=== PATIENT | female | born 1930 | race Caucasian/White ===

== ENCOUNTER → 2016-08-10 | Day surgery (SDC) | payer OTHER ==
[~2016-08-10] VITALS: Ht 152.4 cm; Wt 62.5 kg
[2016-08-10] VITALS (7 sets, daily range): BP systolic 86–140; BP diastolic 46–93; PULSE 49–101; TEMP 36.3; O2SAT 95–99; Ht 152.4 cm; Wt 62.5 kg
[~2016-08-10] MED LIST: ASPI-435 PO; CINN1CAP2 PO; COUMADIN; CRD200 PO; DXY100 PO; ESCI10TA17 PO; FSMD/70 PO; LATA0.5S OP; MAGN400T6 PO; METO25TA3 PO; PROPOFOL IV EMULSION 10 MG/ML 20 ML VIAL IV ONE; SPIR25TA PO; TORS1TAB41 PO
--- NOTE | 2016-08-10 07:34 | History & Physical Bridge Note ---
H&P Re-Evaluation Bridge Note: I have examined the patient, reviewed the History & Physical and in the interval since the performance of the History & Physical I have noted the following changes of clinical significance: No changes noted
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
--- NOTE | 2016-08-10 08:28 | Anesthesiology Progress Note ---
Anesthesia Post Op Note Date & Time Aug 10, 2016 at 08:28 Vital Signs Pain Intensity: 0 Vital Signs Past 12 Hours Date Time Temp Pulse Resp B/P Pulse Ox O2 Delivery O2 Flow Rate FiO2 08/10/16 08:15 51 16 132/75 100 Room Air 08/10/16 08:01 51 16 126/75 94 Room Air 08/10/16 07:51 52 16 114/68 97 Nasal Cannula 2 08/10/16 07:41 51 16 108/65 97 Nasal Cannula 2 08/10/16 07:40 51 14 86/46 98 Nasal Cannula 2 08/10/16 07:35 49 12 92/54 96 Nasal Cannula 4 08/10/16 07:31 50 10 95 Nasal Cannula 4 08/10/16 07:30 53 10 107/60 95 Nasal Cannula 4 08/10/16 07:29 89 16 140/93 97 Nasal Cannula 4 08/10/16 07:12 36.3 101 16 119/84 99 Room Air Notes Mental Status: alert / awake / arousable, participated in evaluation Pt Amnestic to Procedure: Yes Nausea / Vomiting: adequately controlled Pain: adequately controlled Airway Patency, RR, SpO2: stable & adequate BP & HR: stable & adequate Hydration State: stable & adequate Anesthetic Complications: no major complications apparent
--- NOTE | 2016-08-10 09:11 | Discharge Instructions ---
Discharge Instructions Procedure Procedure Date: Aug 10, 2016. Reason for Visit: A-Fib *Dr. Bustos To Do* W/ Anesthesia. Discharge Discharge Date: Aug 10, 2016. Discharge Diagnosis: Successful synchronized electrical cardioversion Last Recorded Wt (Kilograms): 62.5 Anesthesia Post Anesthesia Instructions: If you have had General Anesthesia or IV Sedation: * Do not drive today. * Resume driving when surgeon permits. * Do not make important decisions or sign legal documents today. * Call surgeon for: 1. Temperature elevations greater than 101 degrees F. 2. Uncontrollable pain. 3. Excessive bleeding. 4. Persistent nausea and vomiting. 5. Medication intolerance (nausea, vomiting or rash). * For nausea and vomiting use only clear liquids such as: tea, soda, bouillon until nausea subsides, then gradually increase diet as tolerated. * If you have any concerns or questions, call your surgeon's office. If physician is unavailable and it is an emergency, call 911 or go to the nearest emergency room. Instructions Activity Recommendations: limitations as noted below Return to School/Work: with no limitations Recommended Home Diet: resume previous diet Allergies: Coded Allergies: Penicillin G (Verified Allergy, Unknown, HIVES, 07/05/15) Sulfa Antibiotics (Verified Allergy, Unknown, HIVES, 07/05/15) Provider Instructions ACTIVITY RECOMMENDATIONS: Resume activities as tolerated with no limitations unless specified. __ No lifting over __ pounds for 24 hours. __ Do not engage in vigorous exercise, sexual activity, or sports for 24 hours. __ Do not drive or operate any motorized equipment for 24 hours. SPECIAL CARE: Report any return of rapid heart rhythm promptly Follow Up Follow-up with: Gabo Tarango as scheduled Wilbur Tucker Recommendations: Call your doctor if: * Temperature above 101 degrees * Pain not relieved by pain medicine ordered * There is increased drainage or redness from any incision * You have any unanswered questions or concerns. Your Doctors Instructions noted above were prepared by provider Axel Bustos. Patient Signature Section: Patient Instructions Signature Page Xin Armijo Patient (or Guardian) Signature/Date: I have read and understand the instructions given to me by my caregivers. Caregiver/RN/Doctor Signature/Date: The above-named patient and/or guardian has received patient instructions on this date. + Original Patient Signature Page (only) stays with chart. Please make copy for patient.
--- NOTE | 2016-08-10 09:50 | CARDIOVERSION ---
DATE OF OPERATION: 08/10/2016 DATE OF PROCEDURE: 08/10/2016. REFERRAL INDICATIONS: Atrial fibrillation with rapid ventricular response symptomatic. PRIMARY CARE PHYSICIAN: Dr. Hood. PRIMARY MANAGER MSW: Dr. March. PROCEDURE: After the procedure and risks were explained in detail to the patient informed consent was obtained. Anesthesia was consulted and the patient sedated with continuous heart rate, blood pressure and oxygen saturation monitoring as well as end tidal CO2 monitoring. Synchronized electrical cardioversion was then performed using single 150 joule biphasic shock with successful conversion to sinus bradycardia. The patient aroused post procedure having tolerated well. EKG revealed sinus bradycardia with low atrial focus, poor progression across the anterior precordial leads, no acute ST segment changes. QT corrected was 470. RECOMMENDATIONS: Will continue medical therapy with adjustments made, specifically amiodarone was reduced to 200 mg once per day, metoprolol succinate was reduced to 25 mg once per day. PLAN: Follow up next week with Gabo Tarango as already scheduled. I attest to the content of the Intraoperative Record and any orders documented therein. Any exceptions are noted below. MTDD
== END | disposition home or self-care (01) ==
LOC: C.CATH 06:09
PROVIDERS: ATTEND Internal Medicine Cardiovascular Disease
DX: I48.91 Unspecified atrial fibrillation (principal); I10 Essential (primary) hypertension

== ENCOUNTER 2018-12-25 11:11 | Observation (INO) ==
[~2018-12-25 11:11] MED LIST changes: -ASPI-435 PO; -CINN1CAP2 PO; +CLINDAMYCIN 600 MG/54 ML BAG IV SCH; -COUMADIN; -CRD200 PO; -DXY100 PO; -ESCI10TA17 PO; -FSMD/70 PO; -LATA0.5S OP; +LR 15ML/HR IV SCH; -MAGN400T6 PO; -METO25TA3 PO; -PROPOFOL IV EMULSION 10 MG/ML 20 ML VIAL IV ONE; -SPIR25TA PO; -TORS1TAB41 PO; +VANCOMYCIN HCL 1,000 MG in SODIUM CHLORIDE 0.9% 250 ML IV SCH
--- NOTE | 2018-12-25 11:27 | Pre Anesthesia Assessment ---
Date of Service December 25, 2018 Pre Sedation Assessment Cardiovascular RRR, no murmur, no edema Respiratory normal respiratory effort, lungs clear to auscultation Pre-Sedation Airway Assessment Smoking Status: Never smoker Hx Sleep Apnea: No Hx Difficult Intubation: No Short, Thick Neck: No Thyromental Distance: < 3.5 Finger Breadths Oral Cavity: + Dental Abnormalities Mallampati Class: II ASA: ASA3 NPO Status Date of Last Intake of Fluids: 12/24/18 Date of Last Intake of Solid Food: 12/24/18 Procedure Planning Contraindications for Sedation: none Current Medications Reviewed: Yes Notes The planned sedation has been discussed with the patient. Informed Consent was obtained. I have identified the patient, determined the appropriateness of sedation and have assessed the patient immediately prior to the procedure. All medicine(s) and interventions are by my order.
--- NOTE | 2018-12-25 11:28 | History & Physical Bridge Note ---
Date of Service December 25, 2018 History & Physical Bridge Note I have examined the patient, reviewed the History & Physical and in the interval since the performance of the History & Physical I have noted the following changes of clinical significance: echo revealed moderate to severe MS but I spoke with the patient's primary transport rn will continue with ppm and probably metoprolol afterwards. Rediscussed the procedure and consents obtained.
[2018-12-25 12:38] LABS: INR 2.3 (0.9-1.1); Prothrombin Time 22.1 Seconds (9.0-12.0)
[2018-12-25 12:46] LABS: BUN Creatinine Ratio 16.2 (10-20); Calcium 9.3 mg/dl (8.5-10.1); Creatinine Clr Calc Pharmacy 25.3 ml/min; Est GFR (African American) 48.5; Est GFR (Non-African American) 41.9; Potassium 3.8 mmol/L (3.5-5.1)
[2018-12-25] MEDS ORDERED: BUPIVACAINE 0.25% 30 ML VIAL ONE (14:39)
[2018-12-25] MEDS ORDERED: LIDOCAINE HCL 1% 20 ML VIAL ONE (14:39)
[2018-12-25] MEDS ORDERED: BACITRACIN INJ 50,000 UNIT VIAL ONE (14:39)
[2018-12-25] MEDS ORDERED: fentaNYL citrate 100 MCG/2 ML VIAL ONE (14:54)
[2018-12-25] MEDS ORDERED: MIDAZOLAM HCL 5 MG/ML 1 ML VIAL ONE (14:54)
[2018-12-25] MEDS ORDERED: OXYCODONE/ACETAMINOPHEN 5mg/325mg TAB PO PRN (16:37)
--- NOTE | 2018-12-25 16:43 | Discharge Summary ---
Date of Service December 26, 2018 Admission HPI Per Admitting Provider pt admitted for elective ppm due to tbs Admission Exam Per Admitting Provider aaox3, NAD NC/AT, EOMI Supple No JVD Nrl S1/S2, + systolic murmur CTA b/l no w/r/r soft nt/nd no LE edema b/l skin intact no focal deficits Principal Diagnosis TBS s/p dual chamber ppm Discharge Exam aaox3, NAD NC/AT, EOMI Supple No JVD Nrl S1/S2, +systolic murmur CTA b/l no w/r/r soft nt/nd no LE edema b/l skin intact no focal deficits left pectoral incision intact, no hematoma mild ecchymosis Discharge Data Allergies Allergy/AdvReac Type Severity Reaction Status Date / Time nitrofurantoin Allergy Unknown DELIRIUM Verified 12/25/18 11:50 penicillin G Allergy Unknown HIVES Verified 12/25/18 11:50 Sulfa (Sulfonamide Allergy Unknown HIVES Verified 12/25/18 11:50 Antibiotics) ramipril AdvReac Mild SHORTNESS Verified 12/25/18 11:50 OF BREATH Procedures Performed Operation Date: 12/25/18 13:00 Actual Procedures p Pacer with A/V Leads (Dual) - Cira Coffey DO Ordered Studies CXR: No PTX, leads in position ECG: AP-VS PPM POD 1 Interogation: Normal function; stable lead testing 12/25/18 07:15 EP Lab Images for PACS ONCE Hospital Course (1) Tachy-gerardo syndrome: Total Time Total Time Spent Total Time Spent (In Minutes): 30 Total Time Includes: Examination of the Patient, Discharge Planning, Medication Reconciliation and Other Discharge Plan Discharge Items Patient Disposition: Home - Self-Care Reason For Visit: Tachy/Gerardo Syndrome Discharge Diagnosis: TBS s/p dual chamber ppm Condition: Good Discharge Goals: Improve function Activity: As commented below Activity Comment: do not lift the left elbow over the left shoulder for 1 month Lifting: No more than 10 pounds Lifting Comment: do not lift more than 10 pounds with the left arm for 2 weeks Bathing: Keep incision dry Bathing Comment: can shower wednesday 12/27 let water run over the incision do not scrub it Non-emergency contact: Repeat Photocomposing Machine Operator Call non-emergency contact if: you have any medication questions Follow-Up/Referrals: Heather Wagner DO [Primary Care Provider] - Diet: Resume previous diet Addtl Provider Instructions: device and wound check as scheduled in [facility] next week if you notice any swelling or any concerns at the incision site call my office immediately Prescriptions: New metoprolol succinate 25 mg Tablet Extended Release 24 Hr 50 mg PO DAILY Qty: 30 RF: 0 Continued aspirin 81 mg Tablet,Delayed Release (Dr/Ec) 81 mg PO DAILY Qty: 0 RF: 0 magnesium oxide 400 mg magnesium Capsule 400 mg PO DAILY Qty: 0 RF: 0 warfarin [Coumadin] 2 mg Tablet 2 mg PO DIRECTED Qty: 0 RF: 0 latanoprost [Xalatan] 0.005 % Drops 1 drp OPHTHALMIC (EYE) PM Qty: 7.5 RF: 3 torsemide 20 mg Tablet 20 mg PO Q2D Qty: 0 RF: 0 methimazole [Tapazole] 10 mg Tablet 20 mg PO DAILY RF: 0 torsemide 10 mg Tablet 10 mg PO Q2D RF: 0 Discontinued metoprolol succinate 25 mg Tablet Extended Release 24 Hr 12.5 mg PO DAILY RF: 0 Stand-Alone Forms: [facility] Admission Data Attending Provider: Cira Coffey Primary Care Provider: Heather Wagner
[2018-12-25] MEDS: ACETAMINOPHEN 325 MG TAB PO PRN (17:45)
[2018-12-25] MEDS ORDERED: WARFARIN SOD 1 MG TAB PO SCH (19:00)
[2018-12-25] MEDS ORDERED: LATANOPROST 0.005% OP SOLN 2.5 ML BTL OP SCH (21:00)
[2018-12-26] MEDS: ACETAMINOPHEN 325 MG TAB PO PRN (02:34)
--- NOTE | 2018-12-26 06:30 | XRay Report ---
XR chest 2V routine HISTORY: 87 years-old Female post implant status post placement of a left subclavian pacer COMPARISON: Chest radiograph 07/07/2015 TECHNIQUE: PA and lateral views of the chest FINDINGS: Cardiac silhouette is enlarged, unchanged. Dense mitral annular and thoracic aortic calcifications ar e noted. Status post placement of a left subclavian pacer, leads overlying the expected locations of the right atrium and right ventricle. No postprocedural pneumothorax identified. There is no pleural effusion, focal airspace consolidation or overt pulmonary edema. Cholecystectomy. Degenerative change s of the shoulders and spine. IMPRESSION: Status post placement of a left subclavian pacer. No postprocedural pneumothorax. The above report was generated using voice recognition software. It may contain grammatical, syntax o r spelling errors. Electronically signed by: Yovani Flores M.D. 12/26/2018 6:28 AM
[2018-12-26] MEDS ORDERED: METOPROLOL SUCC 50MG EXT REL TAB PO SCH (09:00)
[2018-12-26] MEDS ORDERED: TORSEMIDE 20 MG TAB PO SCH (09:00)
[2018-12-26] MEDS ORDERED: methIMAzole 5 MG TABLET PO SCH (09:00)
[2018-12-26] MEDS ORDERED: ASPIRIN 81 MG ECTAB PO SCH (09:00)
[2018-12-26] MEDS ORDERED: MAGNESIUM OXIDE 400 MG TAB PO SCH (09:00)
[2018-12-26] MEDS ORDERED: WARFARIN SOD 2 MG TAB PO SCH (16:00)
[2018-12-27] MEDS ORDERED: TORSEMIDE 10 MG TAB PO SCH (09:00)
--- NOTE | 2018-12-27 23:40 | Operative Report ---
DATE OF OPERATION: 12/25/2018 DATE OF PROCEDURE: 12/25/2018 PREOPERATIVE DIAGNOSIS: Tachybrady syndrome. POSTOPERATIVE DIAGNOSIS: Tachybrady syndrome. PROCEDURE: Dual chamber rate responsive permanent pacemaker under fluoroscopic guidance. SURGEON: Cira Coffey DO SUPERVISOR GRINDING: None. ANESTHESIA: Monitored conscious sedation administered under my supervision by Vijaya Jorgensen. Start time 1507 and end time 1626. Total of 3 mg of Versed and 75 mcg fentanyl. INTRAVENOUS FLUIDS: 100 mL. ANTIBIOTICS: 600 mg of clindamycin. BLOOD LOSS: 20 mL. URINE OUTPUT: Not applicable. SPECIMENS: None. FINDINGS: See below. DRAINS: None. INDICATIONS: This is an 87-year-old female with past medical history for hyperthyroidism, recently diagnosed, probably secondary to amiodarone, paroxysmal atrial fibrillation diagnosed back in 2015, she has had a history of 2 cardioversions. She was started on amiodarone in August of 2016 and she is on Coumadin. Her CHADS2-VASc score is 5. Hypertension, moderate mitral stenosis, severe tricuspid regurgitation, mild mitral regurgitation, hyperlipidemia, chronic kidney disease stage III, chronic diastolic heart failure, [place] Heart Association class 2. She has evidence of tachybrady syndrome, was recommended dual chamber pacemaker. CONSENT: Consent was obtained prior to the patient going into electrophysiology lab. The patient was informed of the risks, benefits and alternative procedure. Risks include but not limited to sudden cardiac , cardiac arrhythmias, cerebrovascular accident, myocardial infarction, injury to the blood vessels, chamber of the heart, lung, bleeding, and infection. The patient understood these risks and agreed to the procedure as planned. Informed consent was obtained. DESCRIPTION OF THE PROCEDURE: The patient was brought into the electrophysiology lab in a fasting state. She was connected to continuous threat monitoring analyst. A timeout was performed to ensure patient identity and procedure correctly. The patient received prophylactic antibiotics prior to incision. She was prepped and draped over the left infraclavicular space in normal surgical standard fashion. Monitored conscious sedation was given throughout the procedure for patient's comfort level. [place] precautions were maintained throughout the procedure. A 10 mL of 1% lidocaine, bupivacaine mixture were given in the left deltopectoral groove. Incision was made in left deltopectoral groove. Blunt dissection performed down to identify the cephalic vein. Cephalic vein was identified and isolated using 0 silk ties. The vein was nicked with an 11 blade and a guidewire was inserted without any resistance. An 8-[place] sheath was inserted over the guidewire without any resistance. Dilator was removed and a second guidewire was inserted through the 8-[place] sheath to allow for retained venous access. Sheath was removed, flushed, dilator reinserted over it and then was reinserted over the guidewire. The guidewire and dilator removed. Right ventricular lead was then advanced into right ventricle and positioned in intraventricular apex under fluoroscopic guidance. There was adequate pacing and sensing thresholds and no diaphragmatic stimulation with high output pacing. The 8-[place] sheath was peeled away and lead was fixated to pectoralis muscle using 0 silk suture. A second 8-[place] sheath was inserted over the retained guidewire without any resistance. The guidewire and dilator removed. The right atrial lead was then advanced into right atrium and positioned into interatrial appendage. I did have to reposition it a few times because the sensing was very low and so was the threshold was on the higher side. We ultimately found an acceptable area with lower sensing. There was adequate pacing and sensing and there was no diaphragmatic stimulation with high output pacing. The 8-[place] sheath was peeled away and lead was fixated to pectoralis muscle using 0 silk suture. A pursestring using a 2-[address] needle was used to stop any backbleeding from the cephalic vein site. Then, a pacemaker pocket was created using blunt dissection over the pectoralis muscle within the pectoral fascia. Pocket was flushed with copious amounts of bacitracin saline wash and inspected for hemostasis. Pulse generator was then attached to leads, making sure that the pins were in appropriate position, passed set screws and set screws were all tightened. Pulse generator was then placed into the pocket, making sure that the leads were lying flat beneath the device. A stay stitch using 0 silk suture was used to secure the device to pectoralis muscle. The incision was closed in 3-layer fashion using 2-0 Vicryl interrupted suture followed by 3-0 Vicryl interrupted suture followed by 4-0 Monocryl running stitch and Dermabond was applied. EQUIPMENT: 1. Pulse generator is a [employer] [place] XT DR JEWEL [place] [id number], serial #[id number]. 2. Right atrial lead Medtronic 5076-52 cm, serial #[id number]. 3. Right ventricular lead, Medtronic 5076-58 cm, serial #[id number]. INTRAOPERATIVE TESTIN. Right atrial lead: P waves 1.3 millivolts, impedance 587 ohms, threshold 1.5 volts at 1 millisecond. 2. Right ventricular lead: R-wave 5 millivolts, impedance 745 ohms, threshold 0.6 volts at 0.4 milliseconds. FINAL MEASUREMENTS THROUGH THE DEVICE: 1. Right atrial lead: P waves 1.1 millivolts, impedance 437 ohms, threshold 0.75 volts at 1 millisecond and 1 volt at 0.4 milliseconds. 2. Right ventricular lead: R-wave 5.6 millivolts, impedance 627 ohms, threshold 0.75 volts at 0.4 milliseconds. FINAL PARAMETERS: MVP-R 60/130. Right atrial amplitude 3.5 volts, pulse width 0.4 milliseconds, sensitivity 0.3 millivolts. Right ventricular amplitude 3.5 volts, pulse width 0.4 milliseconds, sensitivity 1.2 millivolts. IMPRESSION: Successful implantation of a dual chamber rate responsive permanent pacemaker under fluoroscopic guidance secondary to tachybrady syndrome. PLAN: Monitor patient overnight, 12-lead ECG, chest x-ray. She is not allowed to lift left elbow or left shoulder for 1 month. She shower in 2 days, let water run over incision, do not scrub it. She can take off her pressure dressing tomorrow. Continue her home medications, restarted back on Coumadin and we will start her on metoprolol 50 mg and she will follow up in our device clinic in [place] in 1 week's time and continue to follow up with general cardiology as scheduled. I attest to the content of the Intraoperative Record and any orders documented therein. Any exception s are noted below.
== END 2018-12-26 10:22 | disposition home or self-care (01) ==
LOC: ASU 11:11 → 2S 11:11